=== PATIENT | female | born 1970 | race Caucasian/White ===

== ENCOUNTER → 2016-12-05 09:25 | Outpatient (CLI) | payer MEDICARE, MEDICAID | END | disposition home or self-care (01) | LOC: D.CN 09:25 | DX: G40.309 Generalized idiopathic epilepsy and epileptic syndromes, not intractable, without status epilepticus (principal); G89.4 Chronic pain syndrome ==

== ENCOUNTER → 2016-12-16 13:11 | Outpatient (CLI) | payer MEDICARE, MEDICAID ==
--- NOTE | 2016-12-18 07:04 | EEG ---
PATIENT:DIMAS LAIRD JUNE DATE OF SERVICE: 12/16/16 MEDICAL RECORD: [id number] DATE OF : [birth year] LOCATION: [facility] ADMISSION DATE: 12/16/16 REFERRING PHYSICIAN: INTERPRETING PHYSICIAN: LIGIA MIRANDA MD DATE OF SERVICE: 12/16/2016 REFERRING PHYSICIAN: Myself as an outpatient. ELECTROENCEPHALOGRAM NUMBER: [id number]. DATE OF EXAMINATION: 12/16/2016 at 1:45 p.m. DATE OF : 1970. TECHNICAL DATA: This electroencephalographic recording consists of approximately 20 minutes of data collection utilizing the international 10:20 system of electrode placement and both referential and non-referential montages. Sixteen channels of electrocerebral recording are accompanied by a 17th channel dedicated to the electrocardiographic rhythm and 2 channels of electromyographic recording. Recording is performed entirely in the waking state utilizing activation by photic stimulation. ELECTROENCEPHALOGRAPHIC DATA: The awake state comprises the entirety of the recorded electrocerebral activity. Electromyographic artifact is prominent and rapid eye movements are seen throughout. The posterior dominant background consists of a symmetric, rhythmic, waxing and waning 10-11 Hz joann activity, which is suppressed by eye opening. No abnormal or focal slowing is identified. No epileptiform discharges are seen. Photic stimulation induces no abnormal change in the recorded electrocerebral activity. INTERPRETATION: Normal (awake). This is a normal waking electroencephalographic recording. TRANSINT:[id number] Voice Confirmation ID: [id number] DOCUMENT ID: [id number] LIGIA MIRANDA MD at 0704 CC: [id number] DICTATION DATE: 12/17/16720 CORPORATE TAX MANAGER: 12/17/16 1347 DEP CLI 12/16/16 [facility] [address] [place] [address]
== END | disposition home or self-care (01) ==
LOC: D.MAMMO 10:30
DX: N60.19 Diffuse cystic mastopathy of unspecified breast (principal); N63.0 Unspecified lump in unspecified breast; N64.4 Mastodynia

== ENCOUNTER → 2018-05-26 14:12 | Outpatient (CLI) | payer MEDICARE, MEDICAID | END | disposition home or self-care (01) | LOC: D.US 14:12 → D.MAMMO 14:30 | PROVIDERS: ATTEND General Practice | DX: Z12.31 Encounter for screening mammogram for malignant neoplasm of breast (principal) ==

== ENCOUNTER → 2018-05-26 16:43 | Outpatient (CLI) | payer MEDICARE, MEDICAID | END | disposition home or self-care (01) | LOC: D.US 14:30 → D.MAMMO 14:30 | PROVIDERS: ATTEND General Practice | DX: Z12.31 Encounter for screening mammogram for malignant neoplasm of breast (principal) ==